=== PATIENT | female | born 1950 | race Caucasian/White ===

== ENCOUNTER 2020-10-01 01:16 | Outpatient (CLI) | payer MEDICARE, SELFPAY ==
[2020-10-01 20:15] LABS: SARS-CoV-2 RNA PCR Negative
== END 2020-10-01 01:17 | disposition home or self-care (01) ==
LOC: ANHCOVIDDT 01:16
PROVIDERS: PCP Internal Medicine; Visit Provider Plastic Surgery
DX: Z01.812 Encounter for preprocedural laboratory examination (principal); Z20.828 Contact with and (suspected) exposure to other viral communicable diseases
CPT/HCPCS: 87635; C9803; U0003

== ENCOUNTER 2020-10-05 00:41 | Day surgery (SDC) | payer MEDICARE, SELFPAY ==
[2020-09-28 12:51] VITALS: BMI 28.3
--- NOTE | 2020-10-05 08:28 | WPDHPUPDATE1 ---
History and Physical Update Update Date/Time: 10/05/20 08:28 History and Physical has been reviewed, including an updated exam of the patient. There are NO changes in the patient's condition. Risks, benefits, and alternatives have been discussed and questions answered. Patient agrees to proceed with procedure.
[2020-10-05 10:12] VITALS: BP 122/63; PULSE 66; RESP 16; TEMP 36.2; O2SAT 99
[2020-10-05] MEDS: LACTATED RINGERS 1,000 ML 30 ML IV CONT ×2 (10:35→13:57)
--- NOTE | 2020-10-05 10:58 | SUR.PREOP ---
1010-PT AWARE SURGEON DELAYS SELF, WILL F/U WITH TIME. 1050-PT AWARE ACTUAL DELAY TIME IS ~1HR.
--- NOTE | 2020-10-05 11:46 | WPDANESEPPF ---
Anes - Initial Pre Proc Eval Procedure: Operation Date: 10/05/20 12:00 Proposed Procedures p Excision Basal Cell Carcinoma Above Left Lateral Ankle With Frozen Section, Possible Full Thickness Skin Graft - Manish Lima MD Date/Time: 10/05/20 11:46 Surgeon: Manish Lima MD Pre Op Diagnosis: BCC Left Lateral Ankle Patient Data Age: 70 Gender: F Height: 5 ft 1 in Weight: 69.5 kg Last Vital Signs Temp 97.2 F L 10/05/20 10:12 Pulse 66 10/05/20 10:12 Resp 16 10/05/20 10:12 BP 122/63 10/05/20 10:12 Pulse Ox 99 10/05/20 10:12 Allergies Allergy/AdvReac Type Severity Reaction Status Date / Time No Known Allergies Allergy Unverified 10/05/20 10:12 Home Medications Medication Instructions Recorded Confirmed Type acetaminophen [Tylenol Extra 100 mg PO HS 09/28/20 10/05/20 History Strength] calcium carbonate-vitamin D3 1 tablet PO BID 09/28/20 10/05/20 History [Calcium with Vitamin D] cetirizine [Zyrtec] 10 mg PO HS 09/28/20 10/05/20 History diphenhydramine HCl [Benadryl] 25 mg PO HS 09/28/20 10/05/20 History fluticasone propion-salmeterol 2 inh INHALATION QAM 09/28/20 10/05/20 History [Advair HFA] melatonin 3 mg PO HS 09/28/20 10/05/20 History melatonin 10 mg PO HS 09/28/20 10/05/20 History montelukast 10 mg PO QAM 09/28/20 10/05/20 History multivitamin [Daily Multiple] 1 tablet PO DAILY 09/28/20 10/05/20 History trazodone 100 mg PO HS 09/28/20 10/05/20 History Patient hx anesthesia problems: none Family hx anesthesia problems: none PMFSH Past Medical History Medical History (Updated 10/05/20 @ 11:46 by Saul Madrid MD) Asthma GERD (gastroesophageal reflux disease) Social History Social History Smoking status: Never smoker Substance use: never Living arrangements: with family Spiritual care concerns: No Anes - Eval Final PreProcedure Day of Procedure 10/05/20 11:46 Patient weight: normal Heart: regular rate and rhythm Lungs: clear to auscultation Airway: Mallampati scale class II Neurological: alert and oriented Last oral intake: >/= 8 hours ASA classification: II Emergent: no Anesthetic plan: proceed Anesthesia type and monitoring: general GIVS and standard monitoring Informed Consent: The patient's anesthetic plan and its attendant risks and benefits were discussed with the patient/family/POA. Questions were solicited and answers provided to the satisfaction of the patient/family/POA.
[2020-10-05] MEDS: LIDO 1%/EPINEPHRINE 1:100,000 20 ML VIAL INFILTRATE (12:42)
--- NOTE | 2020-10-05 13:08 | PM.OP ---
Procedure Note - Brief Procedure Note - Brief Date of procedure: 10/05/20 Pre-op diagnosis: BCC Left Lateral Ankle Post-op diagnosis: same Procedure performed: 1.4 cm excision of BCC left lateral ankle with FS and intermediate repair 3.5 cm. Anesthesia: MAC Surgeon: Manish Lima MD Estimated blood loss (mL): 1 Drains: No Packing: No Pathology: yes Complications: No immediate complications Condition: stable Disposition: same day
[2020-10-05] MEDS: BACITRACIN OINTMENT 15 GM TUBE 1 APPLIC TOPICAL (13:48)
[2020-10-05 13:57] VITALS: BP 123/66; PULSE 76; RESP 16; O2SAT 97
--- NOTE | 2020-10-05 14:02 | P.OP_ITS ---
Procedure Note - Detailed Date of procedure: 10/05/20 Pre-op diagnosis: BCC Left Lateral Ankle Post-op diagnosis: same Procedure performed: 1.4 cm excision of basal cell carcinoma of the left lateral ankle with frozen section x2 and intermediate repair 3.5 cm. Description of procedure: The site on the left lateral leg was identified with the patient and marked in the holding area. She was taken to the operating room and placed supine on the operating table. A time-out was held and confirmed. She was given IV sedation. The left lower extremity was prepped and draped in the usual fashion. A marking was made for estimated excision of this. The site was infiltrated with 1% lidocaine with epinephrine. The full-thickness skin ellipse was taken off into the subcutaneous fat the suture marked the 12 o'clock position most superiorly. The pathologist reported basal cell carcinoma and the 2-5 o'clock margin was positive for basal cell carcinoma. A 2nd excision was carried out this included the ellipse from 12-6 and the new 3:00 o'clock and 12:00 o'clock point was marked with a suture. The specimen was sent for frozen section and the report was that the tumor was cleared. The wound edges were elevated and the wound was closed with intradermal 4-0 Vicryl and a running 5 0 nylon. Small bandage was applied patient is discharged from the operating room stable condition. She is discharged with instructions in wound care and follow- up and will have a prescription for some hydrocodone 5/325 per 6 Anesthesia: MAC Surgeon: Manish Lima MD Estimated blood loss (mL): 2 Drains: No Packing: No Pathology: yes Complications: No immediate complications Disposition: same day
[2020-10-05 14:25] VITALS: BP 128/63; PULSE 70; RESP 16; O2SAT 97
[2020-10-05 14:50] VITALS: BP 109/61; PULSE 69; RESP 16
== END 2020-10-05 15:01 | disposition home or self-care (01) ==
PROVIDERS: PCP Internal Medicine; Visit Provider Plastic Surgery
PROC: (CPT 11622; principal; 2020-10-05 12:00)
DX: C44.719 Basal cell carcinoma of skin of left lower limb, including hip (principal); Z90.49 Acquired absence of other specified parts of digestive tract
CPT/HCPCS: 11622; 12042; 88305; 88331; A9270; J2250; J2405; J2704; J3010; J7120

== ENCOUNTER → 2021-10-26 09:17 | Outpatient (CLI) | payer MEDICARE, SELFPAY ==
[2021-10-26 20:56] LABS: SARS-CoV-2 RNA PCR Negative
== END ==
PROVIDERS: PCP Internal Medicine; Visit Provider Internal Medicine
DX: R09.81 Nasal congestion (principal); Z20.822 Contact with and (suspected) exposure to COVID-19
CPT/HCPCS: C9803; U0003; U0005